=== PATIENT | male | born 1960 | race Caucasian/White ===

== ENCOUNTER 2016-11-22 08:30 | Inpatient (IN) | payer OTHER ==
[~2016-11-22] VITALS: Ht 170.2 cm; Wt 93.9 kg
[2016-11-22] VITALS (8 sets, daily range): BP systolic 89–148; BP diastolic 50–91
[~2016-11-22 08:30] MED LIST: ADVIL,NUPRIN,M200 MG PO; ASPIRIN EC325 MG PO; ASPIRIN81 M2 PO; ATORVASTATIN CA40 MG PO; CENTRUM MULTIG80 MCG PO; CLOPIDOGREL75 MG PO; LISINOPRIL2.5 MG PO; LISINOPRIL5 MG PO; LOPRESSOR25 MG PO; PRILOSEC20 MG PO; PROTONIX40 MG PO; RANEXA500 MG PO
[2016-11-22 22:22] LABS: METH RESISTANT S AUREUS PCR NEGATIVE (NEGATIVE)
[2016-11-22 22:26] LABS: PROBE CHECK PASS; SPECIMEN PROCESSING CONTROL PASS
[2016-11-23] VITALS: BP 88/50
[2016-11-23 04:00] VITALS: BP 88/52
[2016-11-23 08:00] VITALS: BP 106/64
[2016-11-23] MEDS ORDERED: HYDROCODON-ACE1 EAC7 PO (08:06)
== END 2016-11-23 09:45 | disposition home or self-care (01) | DRG 39 ==
LOC: 2SOUTH 08:30 → SDC 15:29 → EDSTATUS 15:30 → 2SOUTH 15:33 → 4WEST 19:48
PROVIDERS: Surgery
PROC: 03CL0ZZ Extirpation of Matter from Left Internal Carotid Artery, Open Approach (ICD-10-PCS; principal; 2016-11-22)
DX: I65.23 Occlusion and stenosis of bilateral carotid arteries (principal); I10 Essential (primary) hypertension; E78.5 Hyperlipidemia, unspecified; I25.2 Old myocardial infarction; Z95.5 Presence of coronary angioplasty implant and graft; G47.30 Sleep apnea, unspecified
CPT/HCPCS: 36415; 86850; 86900; 86901; 87641; 88300; 94760; 94799; C1768; J0690; J1644; J2250; J2405; J2720; J2795; J3010; J7120